=== PATIENT | female | born 1980 | race Caucasian/White ===

== ENCOUNTER 2018-02-02 18:24 | Emergency (ER) | payer MEDICAID ==
[2018-02-02] MEDS ORDERED: MOTRIN 600 MG PO ONE (18:32)
[2018-02-02 18:34] VITALS: BP 150/84; PULSE 80; O2SAT 99
[2018-02-02] MEDS ORDERED: MOTRIN 600 MG ONE (18:36)
--- NOTE | 2018-02-02 18:40 | ERPHSYRPT ---
- History of Present Illness Time Seen by Provider: 02/02/18 18:26 Source: patient, family Exam Limitations: no limitations Patient Subjective Stated Complaint: Pt states "I have a bad knee anyway but I was putting on clothes and I think I twisted it, it popped and now it really hurts." Triage Nursing Assessment: Pt alert and oriented X 3, skin pwd. Pt ambulates with a limp, CSM X 4. PT has pain on lateral, medial and posterior right knee. no bruising, swelling noted. Physician History: patient has had right knee pain off and on for two years; no specific injury; she was changing her clothes today and twisted her right knee; now increased pain distal anterior and medial right knee; increased with wt bearing; no fall; no direct trauma; right handed; no distal sensory loss or weakness; no other complaints Method of Injury: twisted Occurred: just prior to arrival, this afternoon Quality: constant, aching, stabbing (medial) Severity of Pain-Max: severe Severity of Pain-Current: moderate Lower Extremities Pain: knee: right (medial > anterior distal) Modifying Factors: Improves With: cold therapy (helps), immobilization (helps), movement (and wt bearing aggravates) Associated Symptoms: unable to bear weight (without [ain) Allergies/Adverse Reactions: No Known Drug Allergies Allergy (Unverified 02/02/18 18:34) Hx Tetanus, Diphtheria Vaccination/Date Given: No Hx Influenza Vaccination/Date Given: No Hx Pneumococcal Vaccination/Date Given: No Immunizations Up to Date: Yes - Review of Systems Constitutional: No Symptoms Eyes: No Symptoms Ears, Nose, & Throat: No Symptoms Respiratory: No Cough, No Dyspnea, No Wheezing Cardiac: No Chest Pain, No Palpitations, No Syncope Abdominal/Gastrointestinal: No Abdominal Pain, No Nausea, No Vomiting, No Diarrhea Genitourinary Symptoms: No Symptoms Musculoskeletal: Injury (right knee), Joint Pain (right knee) Skin: No Symptoms Neurological: No Symptoms Psychological: No Symptoms - Past Medical History Pertinent Past Medical History: No Neurological History: No Pertinent History ENT History: No Pertinent History Cardiac History: No Pertinent History Respiratory History: No Pertinent History Endocrine Medical History: No Pertinent History Musculoskeletal History: No Pertinent History GI Medical History: No Pertinent History History: No Pertinent History Psycho-Social History: No Pertinent History Female Reproductive Disorders: No Pertinent History - Past Surgical History Past Surgical History: Yes Gastrointestinal: Cholecystectomy Female Surgical History: Tubal Ligation - Social History Smoking Status: Current every day smoker How long have you smoked: 20 years Exposure to second hand smoke: Yes Alcohol Use: Socially Drug Use: none Patient Lives Alone: No Significant Family History: no pertinent family hx - Female History Hx Last Menstrual Period: 01/26/2018 Hx Now: No - Nursing Vital Signs Nursing Vital Signs: Initial Vital Signs Temperature 98.0 F 02/02/18 18:28 Pulse Rate 80 02/02/18 18:28 Respiratory Rate 20 02/02/18 18:28 Blood Pressure 150/84 02/02/18 18:28 O2 Sat by Pulse Oximetry 99 02/02/18 18:28 Pain Scale Pain Intensity 7 - Physical Exam General Appearance: moderate distress, alert Eyes, Ears, Nose, Throat Exam: normal ENT inspection Neck Exam: normal inspection, non-tender, supple Cardiovascular/Respiratory Exam: chest non-tender, normal breath sounds, regular rate/rhythm, heart sounds normal, no M/R/G, no respiratory distress Hips Exam: bilateral: non-tender, normal inspection, normal range of motion, no evidence of injury Legs Exam: bilateral leg: non-tender, normal inspection, normal range of motion , no evidence of injury Knees Exam: right knee: pain (medial > anterior), other (stable to stress; no amy sign; no defecits; ), left knee: non-tender, normal range of motion, no evidence of injury, bilateral knee: normal inspection Ankle Exam: bilateral ankle: non-tender, normal inspection, normal range of motion, no evidence of injury Foot Exam: bilateral foot: non-tender, normal inspection, normal range of motion , no evidence of injury DTR - Lower Extremities Exam: knee (R): 4+, knee (L): 4+ Neuro/Tendon Exam: normal sensation, normal motor functions, normal tendon functions, responds to pain Mental Status Exam: alert, oriented x 3, cooperative Skin Exam: normal color, warm, dry, No rash, No petechiae SpO2 Interpretation: normal SpO2: 99 Oxygen Delivery: Room Air - Course Nursing assessment & vital signs reviewed: Yes - Radiology Exams Right Knee X-ray Interpretation: Interpreted by me, Other (free floating Calcification post lateral right knee ? etiology) Ordered Tests: Active Orders 24 hr Category Date Time Status Cold Application STAT Care 02/02/18 18:32 Ordered Re-Check Vital Signs STAT Care 02/02/18 18:32 Ordered Splint STAT Care 02/02/18 18:55 Ordered KNEE (3 VIEWS) Stat Exams 02/02/18 18:33 Ordered Medication Summary Discontinued Medications Generic Name Dose Route Start Last Admin Trade Name Paulette PRN Reason Stop Dose Admin Ibuprofen 600 mg 02/02/18 18:32 02/02/18 18:38 Motrin 600 Mg PO 02/02/18 18:33 600 mg STAT ONE Administration Ibuprofen Confirm 02/02/18 18:36 Motrin 600 Mg Administered 02/02/18 18:37 Dose 600 mg .ROUTE .STK-MED ONE - Progress Progress: re-examined (after xr and meds) Progress Note: 02/02/18 18:40 ice applied; xr pending; pain meds given; will recheck after xr; family at bedside 02/02/18 18:58 recheck post xr; discussed xr findings and clinical aspect; discussed treatment plan; will apply vazquez wrap and set up with crutches and pain meds; to follow up [facility] l[facility] 48-72 hrs Counseled pt/family regarding: diagnosis, need for follow-up, rad results - Departure Time of Disposition: 18:59 Departure Disposition: Home Clinical Impression: Right knee pain Condition: Stable Critical Care Time: No Referrals: DOCTOR,NO FAMILY [Primary Care Provider] - Instructions: Knee Sprain (DC), Knee Pain (DC) Additional Instructions: crutches; vazquez wrap, RICE; Acute Sprain Instructions lower extremity; R.I.C.E.; wear splint/immobilyzer as directed; observe for neuro-vascular compromise ( change in color; increased pain; cold to touch); Use crutches, walker, cane as directed. FU LMD/ specialist as directed; call for appointment as directed; Return if problems; Take meds as prescribed. Follow-up with family doctor as directed. Call for appointment. Return if any problems. If you smoke please stop. Call or follow up with your family doctor for assistance if you need it to stop. Please wear your seatbelt when driving. Have a nice day. Thank you for allowing us to participate in your care today. :o) Dr Silvio Ellis Prescriptions: Naproxen Sodium [Anaprox Ds] 550 mg PO Q6-8HPRN PRN #14 tablet PRN Reason: Pain
--- NOTE | 2018-02-03 08:37 | XRAY ---
Indication: Right knee pain following twisting injury. Comparison: None 3 views of the right knee demonstrates minimal medial joint space narrowing/spurring, minimal lateral knee spurring, small nonspecific suprapatellar effusion, and posterior fabella. No other bony, articular, or soft tissue abnormalities.
== END 2018-02-02 19:37 | disposition home or self-care (01) ==
LOC: ED 18:24
DX: M25.561 Pain in right knee (principal); X50.1XXA Overexertion from prolonged static or awkward postures, initial encounter; Y93.89 Activity, other specified; Y92.009 Unspecified place in unspecified non-institutional (private) residence as the place of occurrence of the external cause
CPT/HCPCS: 73562; 99283; A9270-GY